=== PATIENT | female | born 1960 | race Caucasian/White ===

== ENCOUNTER 2021-09-13 10:45 | Emergency (ER) | payer BC, OTHER ==
[2021-09-13 11:10] VITALS: BP 145/88; PULSE 56; TEMP 98.6; BMI 20.3
[2021-09-13] MEDS ORDERED: IBUPROFEN 400 MG TABLET (FP) PO ONE ×2 (11:27→11:31)
== END 2021-09-13 13:35 | disposition home or self-care (01) ==
LOC: FER 10:45
DX: S32.592A Other specified fracture of left pubis, initial encounter for closed fracture (principal); W19.XXXA Unspecified fall, initial encounter; Y92.9 Unspecified place or not applicable
CPT/HCPCS: 73523-TC-FY; 99284-25

== ENCOUNTER 2022-01-04 20:00 | Emergency (ER) | payer BC ==
[2022-01-04 20:42] VITALS: BP 132/88; PULSE 60; TEMP 97.9; BMI 20.7
[2022-01-04] MEDS ORDERED: IBUPROFEN 400 MG TABLET (FP) PO ONE ×2 (20:47→21:02)
[2022-01-04] MEDS ORDERED: ACETAMINOPHEN 325 MG TABLET (FP) PO ONE (20:47)
[2022-01-04] MEDS ORDERED: ACETAMINOPHEN 325 MG TABLET (FP) ONE (21:02)
== END 2022-01-04 22:48 | disposition home or self-care (01) ==
LOC: FER 20:00
DX: M79.671 Pain in right foot (principal)
CPT/HCPCS: 73630-TC-RT-FY; 99284-25